=== PATIENT | male | born 1995 | race Caucasian/White ===

== ENCOUNTER 2021-09-25 08:40 | Emergency (ER) | payer OTHER ==
[~2021-09-25 08:40] MED LIST: BACTRIM DS TAB1 EACH PO; KEFLEX500 MG PO
[2021-09-25 10:05] LABS: BASOPHIL 0.3 % (0-2); EOSINOPHIL 1.5 % (0-5); HCT 51.2 % (42.0-52.0); HGB 17.6 g/dl (13.2-18.0); LYMPHOCYTE 18.1 % (15-48); MCH 29.4 pg (25.0-31.0); MCHC 34.4 g/dL (32.0-36.0); MCV 85.6 fL (78.0-100.0); MONOCYTE 8.6 % (0-12); MPV 10.4 fL (6.0-9.5); NEUTROPHIL 71.3 % (41-80); NRBC 0; PLT 226 K/uL (150-400); RBC 5.98 M/uL (4.70-6.00); WBC 9.8 K/uL (4.0-10.5)
[2021-09-25 10:31] LABS: ALBUMIN 4.4 g/dL (3.4-5.0); BILIRUBIN - TOTAL 0.8 mg/dL (0.2-1.0); GLOBULIN (CALCULATION) 3.9 g/dL; TOTAL PROTEIN 8.3 g/dL (6.4-8.2)
[2021-09-25] MEDS ORDERED: PERCOCET 5-3251 EACH PO (11:15)
[2021-09-25] MEDS ORDERED: NAPROXEN500 MG PO (11:15)
[2021-09-25] MEDS ORDERED: FLOMAX0.4 MG PO (11:15)
[2021-09-25] MEDS ORDERED: ONDANSETRON ODT4 MG PO (11:17)
== END 2021-09-25 11:48 | disposition home or self-care (01) ==
LOC: FER 08:40
PROVIDERS: Internal Medicine
DX: N13.2 Hydronephrosis with renal and ureteral calculous obstruction (principal); I86.1 Scrotal varices
CPT/HCPCS: 36415; 76870; 80053; 85025; J1170; J1885; J2405